=== PATIENT | male | born 1980 | race African-American/Black ===

== ENCOUNTER 2021-04-02 07:42 | Emergency (ER) | payer BC, OTHER ==
[~2021-04-02] VITALS: Ht 172.7 cm; Wt 70.3 kg
[~2021-04-02 07:42] MED LIST: AMOXICILLIN 50500 M1 PO; NORCO 5-325 TA1 EACH PO
[2021-04-02 07:44] VITALS: BP 119/68
[2021-04-02] MEDS ORDERED: FLEXERIL PO (08:28)
--- NOTE | 2021-04-02 10:57 | EKG ---
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
== END 2021-04-02 08:33 | disposition home or self-care (01) ==
LOC: ER 07:42
DX: R07.89 Other chest pain (principal); F17.210 Nicotine dependence, cigarettes, uncomplicated; V49.49XA Driver injured in collision with other motor vehicles in traffic accident, initial encounter; Y93.89 Activity, other specified; Y92.89 Other specified places as the place of occurrence of the external cause; Y99.8 Other external cause status

== ENCOUNTER 2021-05-19 13:40 | Emergency (ER) | payer BC ==
[~2021-05-19] VITALS: Ht 172.7 cm; Wt 72.6 kg
[~2021-05-19 13:40] MED LIST changes: +FLEXERIL PO
[2021-05-19 14:10] LABS: HEMATOCRIT 47.6 % (42.0-52.0); HEMOGLOBIN 16.3 gm/dL (14.0-18.0); MCH 30.6 pg (26.0-34.0); MCHC 34.2 g/dL (28.0-37.0); MCV 89.6 fL (80.0-100.0); PLATELET COUNT 296 thou/uL (150-400); RBC 5.31 mil/uL (4.50-6.00); RDW 13.8 % (10.5-14.5); WBC 16.8 thou/uL (4.0-11.0)
[2021-05-19 14:18] LABS: CALCIUM 9.3 mg/dL (8.5-10.1); CREATININE 1.2 mg/dL (0.7-1.3); POTASSIUM 3.8 mmol/L (3.5-5.1)
[2021-05-19 14:24] LABS: ALBUMIN 3.9 g/dL (3.4-5.0); TOTAL BILIRUBIN 0.5 mg/dL (0.2-1.0); TOTAL PROTEIN 7.9 g/dL (6.4-8.2)
[2021-05-19 15:09] LABS: ABSOLUTE NEUTROPHILS 16.1 thou/uL (1.4-8.2)
[2021-05-19 17:02] LABS: URINE BILIRUBIN NEGATIVE (Negative); URINE BLOOD TRACE (Negative); URINE CLARITY CLEAR; URINE COLOR YELLOW; URINE GLUCOSE-RANDOM* NEGATIVE (Negative); URINE KETONES NEGATIVE (Negative); URINE LEUKOCYTES-REFLEX NEGATIVE (Negative); URINE NITRITE-REFLEX NEGATIVE (Negative); URINE PROTEIN (DIPSTICK) NEGATIVE (Negative); URINE UROBILINOGEN 0.2 E.U./dl (0.2-1.0)
[2021-05-19] MEDS ORDERED: ZOFRAN ODT4 MG PO ×2 (19:07)
[2021-05-19] MEDS ORDERED: CIPRO500 M1 PO ×2 (19:07)
[2021-05-19] MEDS ORDERED: NORCO5 PO ×2 (19:07)
[2021-05-19] MEDS ORDERED: FLAGYL500 M1 PO ×2 (19:07)
[2021-05-19 19:11] VITALS: BP 130/81
--- NOTE | 2021-05-20 09:35 | EKG ---
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
[2021-05-25] MEDS ORDERED: FLAGYL500 M1 PO ×2 (08:04)
[2021-05-25] MEDS ORDERED: CIPRO500 M1 PO ×2 (08:04)
[2021-05-25] MEDS ORDERED: LOPERAMIDE 2 MG2 M1 PO ×2 (08:07)
== END 2021-05-19 19:20 | disposition home or self-care (01) ==
LOC: ER 13:40
PROVIDERS: Nurse Practitioner Family
DX: K52.82 Eosinophilic colitis (principal); Z88.5 Allergy status to narcotic agent

== ENCOUNTER 2021-05-20 17:52 | Inpatient (IN) | payer BC ==
[~2021-05-20] VITALS: Ht 167.6 cm; Wt 79.4 kg
[~2021-05-20 17:52] MED LIST changes: +CIPRO500 M1 PO; +FLAGYL500 M1 PO; +NORCO5 PO; +ZOFRAN ODT4 MG PO
[2021-05-20 18:03] VITALS: BP 129/77
[2021-05-20 18:44] LABS: ABSOLUTE NEUTROPHILS 7.8 thou/uL (1.4-8.2); BASOPHILS 0.5 % (0.0-2.0); EOSINOPHILS 0.7 % (0.0-3.0); HEMATOCRIT 45.8 % (42.0-52.0); HEMOGLOBIN 15.1 gm/dL (14.0-18.0); LYMPHOCYTES 10.7 % (24.0-44.0); MCH 29.9 pg (26.0-34.0); MCHC 32.9 g/dL (28.0-37.0); MCV 90.8 fL (80.0-100.0); MONOCYTES 8.3 % (1.0-8.0); PLATELET COUNT 256 thou/uL (150-400); POLYS 79.8 % (36.0-66.0); RBC 5.04 mil/uL (4.50-6.00); RDW 13.7 % (10.5-14.5); WBC 9.7 thou/uL (4.0-11.0)
[2021-05-20 18:59] LABS: CALCIUM 8.8 mg/dL (8.5-10.1); CREATININE 1.1 mg/dL (0.7-1.3); POTASSIUM 3.7 mmol/L (3.5-5.1)
[2021-05-20 19:03] LABS: ALBUMIN 3.2 g/dL (3.4-5.0); TOTAL BILIRUBIN 0.3 mg/dL (0.2-1.0); TOTAL PROTEIN 7.1 g/dL (6.4-8.2)
--- NOTE | 2021-05-20 20:00 | NUR ---
pt states he hasnt been able to urinate much. was able to eventually give the er staff some yesterday but may take awhile.
[2021-05-20 21:18] VITALS: BP 137/80
[2021-05-20 21:31] LABS: URINE BLOOD 1+ (Negative); URINE CLARITY CLEAR; URINE COLOR YELLOW; URINE GLUCOSE-RANDOM* NEGATIVE (Negative); URINE KETONES 2+ (Negative); URINE LEUKOCYTES-REFLEX NEGATIVE (Negative); URINE NITRITE-REFLEX NEGATIVE (Negative); URINE PROTEIN (DIPSTICK) 1+ (Negative); URINE SPECIFIC GRAVITY >= 1.030 (1.005-1.035); URINE UROBILINOGEN 0.2 E.U./dl (0.2-1.0)
[2021-05-20 21:35] LABS: ICTOTEST (BILI CONFIRMATORY) Negative (Negative); URINE BILIRUBIN NEGATIVE (Negative)
[2021-05-20 21:42] LABS: MUCUS >6 Heavy strn/LPF (None Seen); SQUAMOUS 0-3 Few /LPF (0-3)
[2021-05-20 21:43] LABS: BACTERIA-REFLEX None Seen /HPF (None Seen); CASTS None Seen /LPF (None Seen); CRYSTALS None Seen /LPF (None Seen); URINE RBC 1-2 Rare /HPF (NONE SEEN); URINE WBC-REFLEX 0-5 Rare /HPF (0-5)
[2021-05-20 22:16] VITALS: BP 131/79
--- NOTE | 2021-05-20 22:41 | NUR ---
PT ADMITTED TO THE UNIT AT 2200. PT IS A/O X4 AND IS UP AD GOVIND. HAS BEEN EDUCATED ON USE OF CALL LIGHT AND BED CONTROLS. IS ROOM AIR. VSS. AFEBRILE. MEDICATIONS GIVEN PER MAR. WILL REMAIN ON CLEAR LIQ DIET. CALL LIGHT IS WITHIN REACH. WILL CONTINUE TO MONITOR.
[2021-05-21 03:17] VITALS: BP 126/71
[2021-05-21 10:14] VITALS: BP 126/71
--- NOTE | 2021-05-21 10:45 | NUR ---
ASSUMED CARE OF PT AT 0700 THIS MORNING. PT IS A/OX4, C/O LOWER ABD PAIN THAT IS CONSTANT & SHARP. PT HAS NO OTHER COMPLAINTS AT THIS TIME. ASSESSMENTS CHARTED AND OTHERWISE UNREMARKABLE. IV IN RT AC WITH NS AT 75ML/HR. PT HAD BM THIS MORNING LOOSE IN CONSISTENCY. PT IS UP AT GOVIND, CALL LIGHT AND OTHER NEEDS ARE WITHIN REACH. MEDS AND TX GIVEN NEEDED AND SCHEDULED. WILL MONITOR AND NOTE ANY CHANGES.
[2021-05-21 15:28] VITALS: BP 127/81
[2021-05-21 19:59] VITALS: BP 115/70
--- NOTE | 2021-05-21 21:26 | NUR ---
ASSESSMENT COMPLETED. PT IS ALERT AND ORIENTED. CONTINUES TO COMPLAIN OF ABDOMINAL PAIN-FENTANYL GIVEN WELL ZOFRAN. PT LAYING IN BED-DOES NOT APPEAR TO BE IN ANY DISTRESS. REPORTS OVER 5 BMS EARLER IN THE DAY, NONE SO FAR SINCE START OF SHIFT. AFEBRILE. AWAITING CDIFF RESULTS. IVF INFUSING WELL SCHEDULED ABTS. REQUESTED SLEEP AIDE. CALLS WITH NEEDS.
[2021-05-22 05:51] LABS: HEMOGLOBIN 14.1 gm/dL (14.0-18.0); MCH 30.5 pg (26.0-34.0); MCHC 33.6 g/dL (28.0-37.0); MCV 90.9 fL (80.0-100.0); RBC 4.62 mil/uL (4.50-6.00); RDW 13.5 % (10.5-14.5); WBC 6.3 thou/uL (4.0-11.0)
[2021-05-22 06:04] LABS: CALCIUM 8.2 mg/dL (8.5-10.1); POTASSIUM 3.7 mmol/L (3.5-5.1)
--- NOTE | 2021-05-22 09:46 | NUR ---
ASSESSMENT: CM REVIEWED CHART AND SPOKE WITH PATIENT AT THE BEDSIDE. PT IS ALERT AND ORIENTED X4. PT WAS ADMITTED DUE TO COLITIS. PT REPORTS THAT HE LIVES IN A HOUSE WITH HIS FAMILY. PT REPORTS BEING FULLY INDEPENDENT WITH ADLS AND AMBULATION. PT DENIES ANY HX OF HH OR SNF. PT IS CURRENTLY ON IV ANBX AND GI IS FOLLOWING. PT IS HAVING STOOL STUDIES. PT REPORTS HE DOES NOT HAVE A PCP. CM ENCOURAGED PATIENT TO ESTABILISH A PCP AND TO CONTACT THE NUMBER ON THE BACK OF HIS INSURNACE CARD TO FIND A PROVIDER IN NETWORK. CM ALSO PROVIDED PATIENT WITH A LIST OF PCP PHYSICIANS HERE AT [facility]) TO VERIFY IF THEY ARE IN NETWORK. CM WILL CONTINUE TO FOLLOW TO ASSIST NEEDED.
--- NOTE | 2021-05-22 15:11 | NUR ---
ASSUMED CARE OF PT AGAIN THIS MORNING. PT'S ASSESSMENTS AND REPORT ARE UNCHANGED FROM YESTERDAY AND OTHERWISE UNREMARKABLE. PT IN INDEP AMBULATION. IV IN RT FA WITH NS AT 75ML/HR. CALL LIGHT AND OTHER NEEDS ARE WITHIN REACH. MEDS AND TX GIVEN NEEDED AND SCHEDULED. PT IS BEING XFERRED TO [facility] TO MAKE ROOM FOR OR PATIENTS. REPORT GIVEN TO JAY JAY PLASCENCIA.
[2021-05-22 15:15] VITALS: BP 115/70
[2021-05-22 18:52] VITALS: BP 135/88
--- NOTE | 2021-05-22 19:15 | NUR ---
ASUMED PT CARE UPON TRANSFER TO UNIT AT 1530. PATIENT IS A&OX4, ABLE TO MAKE NEEDS KNOWN. PATIENT REPORTS ABDOMINAL PAIN THAT DECREASES WITH PAIN MEDS GIVEN PER EMAR. SIGNIFICANT OTHER AT BEDSIDE.
[2021-05-22 19:41] VITALS: BP 132/88
--- NOTE | 2021-05-23 03:47 | NUR ---
TODAY THIS PT HAS HAD SOME STATED PAIN IN HIS ABD IN WHICH IT WAS TAKEN CARE OF WITH MEDICATIONS. HE COMPLAINED OF NOT BEING ABLE TO SMOKE SO PHYSICIAN WAS CONTACTED AND ORDERS WERE GIVEN HE NOW HAS A NICOTINE PATCH ON HIS L ARM. HE HAS BEEN NPO SINCE MIDNIGHT FOR HIS PROCEDURE LATER TODAY.
[2021-05-23 04:07] VITALS: BP 125/75
[2021-05-23 08:06] VITALS: BP 118/80
--- NOTE | 2021-05-23 12:12 | NUR ---
ASSUMED PT CARE THIS AM. PT A&OX4, ABLE TO MAKE NEEDS KNOWN. PATIENT REPORTING PAIN OF 6/10, RESPONDS WELL TO PAIN MEDICATION GIVEN PER EMAR. PATIENT REPORTS HAVING CLEAR STOOLS OVERNIGHT. PATIENT NPO FOR COLONOSCOPY. IV REMAINS PATENT, FLUIDS INFUSING WITHOUT ISSUE. PATIENT UP AROUND ROOM INDEPENDENTLY. PATIENT REMAINS ON ROOM AIR. CALL LIGHT WITHIN REACH.
--- NOTE | 2021-05-23 16:29 | NUR ---
PT HAD COLONOSCOPY THIS DAY. ANTICIPATE THAT PT WILL BE ABLE TO DC HOME WITH NO NEEDS ONCE MEDICALLY STABLE. CM FOLLOWING REGARDING DC PLANNING.
[2021-05-23 19:32] VITALS: BP 121/78
--- NOTE | 2021-05-24 04:05 | NUR ---
PATIENT AOX4 MAKES NEEDS KNOWN. PAIN CONTROLLED THIS SHIFT. PATIENT IS UP AT GOVIND. PATIENT IN BED ASLEEP AT THIS TIME BREATHING REGULAR AND UNLABOURED.
[2021-05-24 06:47] LABS: HEMATOCRIT 41.3 % (42.0-52.0); HEMOGLOBIN 13.8 gm/dL (14.0-18.0); MCH 30.1 pg (26.0-34.0); MCHC 33.4 g/dL (28.0-37.0); RBC 4.59 mil/uL (4.50-6.00); RDW 13.6 % (10.5-14.5); WBC 6.5 thou/uL (4.0-11.0)
[2021-05-24 07:00] LABS: POTASSIUM 3.5 mmol/L (3.5-5.1)
[2021-05-24 08:30] VITALS: BP 115/75
--- NOTE | 2021-05-24 13:50 | NUR ---
Alert and orientated X4. Calm, cooperative and compliant. States he is having abdominal pain 9/. Fentanyl 50mcg given IV over 5 min with good immediate relief. States he could still feel cramps but they were painless. Talking on phone most of AM. At times irritable wanting coffee. Breath sounds clear. Reg HR auscultated. Color pink with brisk capillary refill and palpable peripheral pulses. No edema noted. Independent with voiding. Active bowel sounds over soft, rounded abdomen. Currently in room, no s/o distress.
--- NOTE | 2021-05-24 14:36 | P ---
[facility] [place] [address] PROCEDURE REPORT Name: ROLO NINO JR Room #: 464-P ADM IN M.R.#: [id number] Admission: 05/20/21 Attend Phys: Franki Gramajo MD Discharge: Date of : 78 Report #: [id number] THIS REPORT FOR: cc: FAM - No family physician/PCP FAM - No family physician/PCP Fadi Grover MD ~ cc: Franki Gramajo MD DATE OF SERVICE: 05/23/2021 PROCEDURE PERFORMED: Colonoscopy with biopsies. HISTORY OF PRESENT ILLNESS: The patient was admitted on 05/20/2021 with abdominal pain, nausea, vomiting, diarrhea. Symptoms began last . He denied any melena or hematochezia. A CT scan of the abdomen and pelvis concerning for pancolitis. He was started on antibiotics. He had continued symptoms. Stool studies have all been negative including cryptosporidium, campylobacter, C. diff, Giardia, Salmonella, Shigella, all are negative. The patient has been on ciprofloxacin, metronidazole since admission. Plan is for colonoscopy. DESCRIPTION OF PROCEDURE: The risks and benefits of the procedure were explained to the patient, those risks including but not limited to bleeding, perforation and the risk of sedation. He understood these risks and gave me informed consent. Sedation was given using propofol per anesthesia. Next, a digital rectal exam was initially performed, which was normal. Next, using a standard Olympus colonoscope, the scope was placed in the patient's anus and advanced under direct vision to the cecum. The overall prep was excellent. Moderate colitis was noted throughout most of the colon involving the cecum, ascending, transverse, descending and sigmoid colon. Mild-to-no significant changes were noted in the rectum. The terminal ileum was intubated and normal in appearance. Multiple biopsies were obtained in the ascending and transverse colon. Rectal biopsies were also obtained. There was no evidence of bleeding. On retroflexion, no abnormalities were noted. The scope was then withdrawn and the procedure terminated. The patient tolerated the procedure well. IMPRESSION: 1. Diffuse colitis. 2. Terminal ileum was normal. RECOMMENDATIONS: 1. Await biopsy results. 2. We will advance diet at this time. Start Levsin on a p.r.n. basis. Continue antibiotics until biopsy results have been returned. [address] [address] PROCEDURE REPORT Name: ROLO NINO Room #: 464-P [facility] IN .R.#: [id number] Admission: 05/20/21 Attend Phys: Franki Gramajo MD Discharge: Date of : 78 Report #: [id number] Thank you for allowing me to participate in his care. <ELECTRONICALLY SIGNED> By: Fadi Grover MD 05/24/21 1436 1258 2357 Fadi Grover MD /nt
--- NOTE | 2021-05-24 19:50 | NUR ---
patient left ams at around 1933 accompanied by . ama paper sighed. Nika psychiatric np and concrete pipe plant supervisor notified. patient aox4 makes needs known.patient is up at [facility].
[2021-05-25] MEDS ORDERED: CIPRO500 M1 PO ×2 (08:04)
[2021-05-25] MEDS ORDERED: FLAGYL500 M1 PO ×2 (08:04)
[2021-05-25] MEDS ORDERED: LOPERAMIDE 2 MG2 M1 PO ×2 (08:07)
--- NOTE | 2021-05-25 16:06 | PATH ---
[facility] [address] [address] PATHOLOGY RPT PROCEDURE Name: BIGG NINO Room #: 464-P DIS IN M.R.#: [id number] Admission: 05/20/21 Date of : 78 Discharge: 05/24/21 Report #: [id number] Path Case #: [id number] [facility] Accession Number: [id number] . 01 Material submitted: . PART A: colon - ASCENDING COLON COLITIS BIOPSY. Modifiers: ascending PART B: colon - TRANSVERSE COLON COLITIS BIOPSY. Modifiers: transverse PART C: rectum - RECTUM BIOPSY . 01 Clinical history: . COLONOSCOPY COLITIS . 02 Diagnosis: A. Large intestine, ascending colon colitis, endoscopic biopsy: - Mild to moderate active colitis with cryptitis and crypt abscess formation. - Negative for dysplasia or malignancy. . B. Large intestine, transverse colon colitis, endoscopic biopsy: - Mild to moderate active colitis with cryptitis, crypt abscess formation as well as focal surface ulceration. - Negative for dysplasia or malignancy. . C. Large intestine, rectum, endoscopic biopsy: - Mild active colitis with cryptitis. - Negative for dysplasia or malignancy. [facility] 05/25/2021 [facility]3 Local . 02 Comment: Examination shows mild to moderate active colitis within the "ascending colon" and the "transverse colon" biopsy tissues. Cryptitis, crypt abscess formation and markedly expanded lamina propria is identified within these biopsy tissues. In addition, the transverse colon biopsy tissue shows surface ulceration as well. There are no granulomata, or parasitic organisms present. There are no fibrin thrombi within the lamina propria vessels or ischemic changes identified. The rectum biopsy tissue shows cryptitis, and a lesser degree of inflammation. Overall, findings may be suggestive of early inflammatory bowel disease. Architecturally abnormal crypts are not appreciated. There is no basal plasmacytosis as well. The differential diagnosis includes Crohn's disease as well as ulcerative colitis. Lack of granulomata does not entirely exclude the possibility of Crohn's disease. Additionally, active episode of colitis due to infectious etiology, or drug/medication induced colitis is in the differential as well. Please correlate clinically. (IUV/db; 05/25/2021) . [address] [address] PATHOLOGY RPT PROCEDURE Name: BIGG NINO Room #: 464-P DIS IN M.R.#: [id number] Admission: 05/20/21 Date of : 78 Discharge: 05/24/21 Report #: [id number] Path Case #: [id number] Electronically signed: . Dee Haskins MD, Pathologist NPI- [id number] . 01 Gross description: . A. The specimen is submitted in formalin, labeled "Jonathan Jr., Bigg, ascending colon biopsy colitis". Received are 3 segments of pale martin tissue ranging in size from 0.3 to 0.4 cm in maximum dimensions. The specimen is submitted in cassette A1. . B. The specimen is submitted in formalin, labeled "Jonathan Jr., Bigg, transverse colon colitis biopsy". Received are 2 segments of pale martin tissue ranging in size from 0.4 to 0.5 cm in maximum dimensions. The specimen is submitted in cassette B1. . C. The specimen is submitted in formalin, labeled "Jonathan Jr., Bigg, rectum biopsy". Received are 5 segments of pale martin tissue ranging in size from 0.2 to 0.6 cm in maximum dimensions. The specimen is submitted in cassette C1. ([facility]; 05/24/2021) NRI/NRI 05/24/2021 1135 Local . 02 Pathologist provided ICD-10: K52.9, K63.0, K62.89, K63.3 . 02 CPT . 272643, 190810, 716004 Specimen Comment: A courtesy copy of this report has been sent to [phone], [phone] Specimen Comment: [id number] Specimen Comment: Report sent to / DR LAM Performed at: [address] [facility], [place] [id number] MD Eduardo Pearson MD Phone: [phone] Performed at: [address] [facility] [address] [id number] MD Dee Haskins MD Phone: [phone]
== END 2021-05-24 19:33 | disposition left against medical advice (07) | DRG 387 ==
LOC: ER 17:52 → 4W 19:17 → 4S 19:17 → EROBS 19:17 → 4S 21:49 → 4W 05-22 15:18
PROVIDERS: Physician Assistant; ADMIT Hospitalist; ATTEND Hospitalist
PROC: 0DBL8ZX Excision of Transverse Colon, Via Natural or Artificial Opening Endoscopic, Diagnostic (ICD-10-PCS; principal; 2021-05-23)
PROC: 0DBP8ZX Excision of Rectum, Via Natural or Artificial Opening Endoscopic, Diagnostic (ICD-10-PCS; principal; 2021-05-23)
PROC: 0DBK8ZX Excision of Ascending Colon, Via Natural or Artificial Opening Endoscopic, Diagnostic (ICD-10-PCS; principal; 2021-05-23)
DX: K51.30 Ulcerative (chronic) rectosigmoiditis without complications (principal); F17.210 Nicotine dependence, cigarettes, uncomplicated; D72.829 Elevated white blood cell count, unspecified; Z20.822 Contact with and (suspected) exposure to COVID-19; Z53.21 Procedure and treatment not carried out due to patient leaving prior to being seen by health care provider; Z88.5 Allergy status to narcotic agent; Z79.899 Other long term (current) drug therapy
CPT/HCPCS: 10040; 10195; 62110; 62900; 70005

== ENCOUNTER → 2021-06-29 | Outpatient (CLI) | payer BC ==
[~2021-06-29] MED LIST changes: +LOPERAMIDE 2 MG2 M1 PO
== END ==
LOC: CAT 08:33
PROVIDERS: ATTEND Internal Medicine Gastroenterology
DX: K42.9 Umbilical hernia without obstruction or gangrene (principal); R10.9 Unspecified abdominal pain; R19.7 Diarrhea, unspecified; M48.07 Spinal stenosis, lumbosacral region; M25.78 Osteophyte, vertebrae